=== PATIENT | male | born 1955 | race American Indian/Alaskan Native ===

== ENCOUNTER → 2018-03-27 | Outpatient (CLI) | payer SELFPAY ==
[~2018-03-27] MED LIST: CIPR500 PO; CLIN300 PO; FLUT.05NI; HYDACE5 PO; METO25ER PO; ONDA4 PO; OXYACE5T PO; PROM25 PO; RXPROM25 PO
[2018-03-27 11:01] LABS: BASOPHILS ABSOLUTE AUTO 0.02 K/mm3 (0.00-0.23); BASOPHILS PERCENT AUTO 0 % (0-2); EOSINOPHILS ABSOLUTE AUTO 0.13 K/mm3 (0.00-0.68); EOSINOPHILS PERCENT AUTO 2 % (0-6); Hematocrit 46.8 % (37.0-53.0); Hemoglobin 15.5 g/dL (13.5-17.5); IMMATURE GRAN ABSOLUTE AUTO 0.03 K/mm3 (0.00-0.10); IMMATURE GRAN PERCENT AUTO 0 % (0-1); LYMPHOCYTES ABSOLUTE AUTO 2.18 K/mm3 (0.84-5.20); LYMPHOCYTES PERCENT AUTO 28 % (21-46); MONOCYTES ABSOLUTE AUTO 0.51 K/mm3 (0.16-1.47); MONOCYTES PERCENT AUTO 7 % (4-13); Mean Corpuscular HGB 31.5 pg (26.0-34.0); Mean Corpuscular HGB Conc 33.1 g/dL (31.5-36.5); Mean Corpuscular Volume 95 fL (80-100); Mean Platelet Volume 11.5 fL (9.1-12.4); NEUTROPHILS ABSOLUTE AUTO 4.82 K/mm3 (1.96-9.15); NEUTROPHILS PERCENT AUTO 63 % (41-73); Platelet Count 222 K/mm3 (150-400); RDW Standard Deviation 46.4 fL (35.1-46.3); Red Blood Cell Count 4.92 M/mm3 (4.30-5.90); White Blood Cell Count 7.69 K/mm3 (4.00-11.30)
[2018-03-27 11:32] LABS: Alanine Aminotransfer (ALT/SGP 19 U/L (12-78); Albumin, Blood 3.6 g/dL (3.4-5.0); Albumin/Globulin Ratio 0.9 (0.8-1.8); Alk Phos 110 U/L (50-136); Anion Gap 3 mmol/L (6-16); Aspartate Aminotrans (AST/SGOT 13 U/L (12-37); Bilirubin, Total 0.4 mg/dL (0.1-1.0); Blood Urea Nitrogen 10 mg/dL (8-24); Bun/Creatinine Ratio 11.5 (12.0-20.0); CHOL/HDL RATIO 3.8; CO2, Blood 30 mmol/L (21-32); Calcium, Blood 8.5 mg/dL (8.5-10.1); Chloride, Blood 104 mmol/L (98-108); Cholesterol 199 mg/dL (50-200); Creatinine, Blood 0.87 mg/dL (0.60-1.20); Globulin, Blood 3.8 g/dL (2.2-4.0); Glomerular Filtration Rate >60 (60-); Glucose, Blood 86 mg/dL (70-99); HDL Cholesterol 53 mg/dL (>39); LDL/HDL RATIO 2.5; Low Density Lipoprotein Chol 132 mg/dL (0-110); Potassium, Blood 4.2 mmol/L (3.5-5.5); Sodium, Blood 137 mmol/L (136-145); Total Protein, Blood 7.4 g/dL (6.4-8.2); Triglycerides 71 mg/dL (30-160); Very Low Density Lipoprot Chol 14 mg/dL (6-32)
== END ==
LOC: LAB SHORT 10:51 → LAB 10:51
PROVIDERS: Physician Assistant
DX: R00.2 Palpitations (principal); R53.83 Other fatigue
CPT/HCPCS: 80053; 80061; 84443; 85025

== ENCOUNTER → 2022-10-16 | Outpatient (CLI) | payer SELFPAY ==
[2022-10-16 13:54] LABS: BASOPHILS ABSOLUTE AUTO 0.04 K/mm3 (0.00-0.23); BASOPHILS PERCENT AUTO 1 % (0-2); EOSINOPHILS PERCENT AUTO 1 % (0-6); Hemoglobin 14.9 g/dL (13.5-17.5); IMMATURE GRAN ABSOLUTE AUTO 0.02 K/mm3 (0.00-0.10); IMMATURE GRAN PERCENT AUTO 0 % (0-1); LYMPHOCYTES ABSOLUTE AUTO 1.57 K/mm3 (0.84-5.20); LYMPHOCYTES PERCENT AUTO 20 % (21-46); MONOCYTES ABSOLUTE AUTO 0.55 K/mm3 (0.16-1.47); MONOCYTES PERCENT AUTO 7 % (4-13); Mean Corpuscular HGB 31.9 pg (26.0-34.0); Mean Corpuscular HGB Conc 33.9 g/dL (31.5-36.5); Mean Corpuscular Volume 94 fL (80-100); Mean Platelet Volume 10.8 fL (9.1-12.4); NEUTROPHILS ABSOLUTE AUTO 5.59 K/mm3 (1.96-9.15); NEUTROPHILS PERCENT AUTO 71 % (41-73); Platelet Count 252 K/mm3 (150-400); RDW Coefficient Variation 12.6 % (11.7-14.2); RDW Standard Deviation 43.8 fL (35.1-46.3); Red Blood Cell Count 4.67 M/mm3 (4.30-5.90); White Blood Cell Count 7.87 K/mm3 (4.00-11.30)
[2022-10-16 14:05] LABS: Albumin, Blood 3.5 g/dL (3.4-5.0); Bilirubin, Total 0.2 mg/dL (0.1-1.0); Bun/Creatinine Ratio 14.9 (12.0-20.0); Calcium, Blood 8.7 mg/dL (8.5-10.1); Creatinine, Blood 1.01 mg/dL (0.60-1.20); Globulin, Blood 3.4 g/dL (2.2-4.0); Potassium, Blood 4.5 mmol/L (3.5-5.5); Total Protein, Blood 6.9 g/dL (6.4-8.2)
[2022-10-16 15:01] LABS: PSA, %Free 7.3 %
== END | disposition home or self-care (01) ==
LOC: LAB SHORT 13:47
PROVIDERS: Chiropractor
DX: N40.0 Benign prostatic hyperplasia without lower urinary tract symptoms (principal); N50.819 Testicular pain, unspecified
CPT/HCPCS: 80053; 84153; 84154; 85025

== ENCOUNTER → 2025-02-02 | Outpatient (CLI) | payer MEDICARE, OTHER | LOC: LAB 17:34 → LAB SHORT 17:34 | DX: R31.29 Other microscopic hematuria (principal) | CPT/HCPCS: 87086 ==

== ENCOUNTER 2025-06-05 04:12 | Day surgery (SDC) | payer MEDICARE, OTHER | END 2025-06-05 23:00 | disposition home or self-care (01) | LOC: HBO 04:12 | DX: N30.41 Irradiation cystitis with hematuria (principal); R82.89 Other abnormal findings on cytological and histological examination of urine; C61 Malignant neoplasm of prostate; R30.0 Dysuria; C77.9 Secondary and unspecified malignant neoplasm of lymph node, unspecified | CPT/HCPCS: G0277 ==

== ENCOUNTER 2025-06-06 04:34 | Day surgery (SDC) | payer MEDICARE, OTHER | END 2025-06-06 22:00 | disposition home or self-care (01) | LOC: HBO 04:34 | DX: N30.41 Irradiation cystitis with hematuria (principal); R82.89 Other abnormal findings on cytological and histological examination of urine; C61 Malignant neoplasm of prostate; R30.0 Dysuria; C77.9 Secondary and unspecified malignant neoplasm of lymph node, unspecified | CPT/HCPCS: G0277 ==

== ENCOUNTER 2025-06-07 02:02 | Day surgery (SDC) | payer MEDICARE, OTHER | END 2025-06-07 23:00 | disposition home or self-care (01) | LOC: HBO 02:02 | DX: N30.41 Irradiation cystitis with hematuria (principal); R82.89 Other abnormal findings on cytological and histological examination of urine; C61 Malignant neoplasm of prostate; R30.0 Dysuria; C77.9 Secondary and unspecified malignant neoplasm of lymph node, unspecified | CPT/HCPCS: G0277 ==

== ENCOUNTER 2025-06-08 01:31 | Day surgery (SDC) | payer MEDICARE, OTHER | END 2025-06-08 23:00 | disposition home or self-care (01) | LOC: HBO 01:31 | DX: N30.41 Irradiation cystitis with hematuria (principal); C77.9 Secondary and unspecified malignant neoplasm of lymph node, unspecified; C61 Malignant neoplasm of prostate; R82.89 Other abnormal findings on cytological and histological examination of urine; R30.0 Dysuria | CPT/HCPCS: G0277 ==

== ENCOUNTER 2025-06-09 01:45 | Day surgery (SDC) | payer MEDICARE, OTHER ==
[2025-06-10] MEDS ORDERED: TAMSULOSIN HCL0.4 M1 PO (01:54)
[2025-06-10] MEDS ORDERED: MONDOXYNE NL100 MG PO (02:11)
[2025-06-10] MEDS ORDERED: TRAM50 PO (02:11)
[2025-06-10] MEDS ORDERED: DIPHENHYDRAMINE50 M2 PO (02:12)
[2025-06-10] MEDS ORDERED: SOLIFENACIN SUCC5 MG PO (02:12)
[2025-06-10] MEDS ORDERED: ERLEADA240 MG PO (02:13)
[2025-06-10] MEDS ORDERED: AZO D-MANNOSE500 M1 PO (02:16)
== END 2025-06-09 23:00 | disposition home or self-care (01) ==
LOC: HBO 01:45
DX: N30.41 Irradiation cystitis with hematuria (principal); R82.89 Other abnormal findings on cytological and histological examination of urine; C61 Malignant neoplasm of prostate; R30.0 Dysuria; C77.9 Secondary and unspecified malignant neoplasm of lymph node, unspecified
CPT/HCPCS: G0277

== ENCOUNTER 2025-06-09 18:46 | Inpatient (IN) | payer MEDICARE, OTHER ==
[~2025-06-09] VITALS: Ht 175.3 cm; Wt 70.1 kg
[2025-06-09] MEDS ORDERED: FentaNYL Citrate 50 MCG/ML 2 ML Injection IV ONE (19:00)
[2025-06-09] MEDS ORDERED: DiphenhydrAMINE HCl 50 MG/ML 1ML Vial IV ONE (19:00)
[2025-06-09 19:08] LABS: BASOPHILS ABSOLUTE AUTO 0.02 K/mm3 (0.00-0.23); BASOPHILS PERCENT AUTO 0 % (0-2); EOSINOPHILS ABSOLUTE AUTO 0.11 K/mm3 (0.00-0.68); EOSINOPHILS PERCENT AUTO 2 % (0-6); Hematocrit 33.2 % (37.0-53.0); Hemoglobin 11.1 g/dL (13.5-17.5); IMMATURE GRAN ABSOLUTE AUTO 0.02 K/mm3 (0.00-0.10); IMMATURE GRAN PERCENT AUTO 0 % (0-1); LYMPHOCYTES ABSOLUTE AUTO 0.92 K/mm3 (0.84-5.20); LYMPHOCYTES PERCENT AUTO 14 % (21-46); MONOCYTES ABSOLUTE AUTO 0.52 K/mm3 (0.16-1.47); MONOCYTES PERCENT AUTO 8 % (4-13); Mean Corpuscular HGB Conc 33.4 g/dL (31.5-36.5); Mean Corpuscular Volume 97 fL (80-100); NEUTROPHILS ABSOLUTE AUTO 5.02 K/mm3 (1.96-9.15); NEUTROPHILS PERCENT AUTO 76 % (41-73); NRBC ABSOLUTE 0.00 K/mm3 (0.00-0.02); NRBC Auto 0.0 /100 WBC (0.0-0.2); Platelet Count 236 K/mm3 (150-400); RDW Coefficient Variation 12.3 % (11.7-14.2); RDW Standard Deviation 43.8 fL (35.1-46.3)
[2025-06-09 19:24] LABS: Prothrombin Time Results 10.3 Sec (9.7-11.5)
[2025-06-09] MEDS ORDERED: HYDROmorphone HCl/Pf 1MG SYR ONE (19:33)
[2025-06-09 19:35] LABS: Alanine Aminotransfer (ALT/SGP 69.0 U/L (12-78); Albumin, Blood 3.2 g/dL (3.4-5.0); Albumin/Globulin Ratio 1.0 (0.8-1.8); Anion Gap 6.0 mmol/L (3-11); Aspartate Aminotrans (AST/SGOT 84.0 U/L (12-37); Bilirubin, Total 0.3 mg/dL (0.1-1.0); Blood Urea Nitrogen 20.0 mg/dL (8-24); CO2, Blood 29.0 mmol/L (21-32); Calcium, Blood 8.9 mg/dL (8.5-10.1); Chloride, Blood 104.0 mmol/L (98-108); Creatinine, Blood 1.05 mg/dL (0.60-1.20); Globulin, Blood 3.3 g/dL (2.2-4.0); Glucose, Blood 129.0 mg/dL (70-99); Potassium, Blood 4.2 mmol/L (3.5-5.5); Sodium, Blood 135.0 mmol/L (136-145); Total Protein, Blood 6.5 g/dL (6.4-8.2)
[2025-06-09] MEDS ORDERED: HYDROmorphone HCl/Pf 1MG SYR IV ONE ×2 (19:35→21:50)
[2025-06-09 19:47] LABS: Source, Urine Clean Catch
[2025-06-09 19:52] LABS: Bilirubin, Urine Neg (Neg); Color, Urine Yellow (P-Yellow); Glucose Qualitative, Urine Neg (Neg); Ketones, Urine Neg (Neg); Leukocyte Esterase, Urine Neg (Neg); Protein, Urine 2+ (Neg); Specific Gravity, Urine 1.010 (1.003-1.022); Urobilinogen, Urine 1+ (Normal)
[2025-06-09] MEDS ORDERED: Diazepam 5 MG / ML 2ML SYR IV ONE (20:45)
[2025-06-09] MEDS ORDERED: CeFAZolin Sodium 2,000 MG in NS 100 ML IV ONE (20:55)
[2025-06-09] MEDS ORDERED: Ondansetron HCl 2 MG / ML 2ML Vial IV PRN (23:05)
[2025-06-09] MEDS ORDERED: HYDROmorphone HCl/Pf 1MG SYR IV PRN (23:10)
[2025-06-10] VITALS (13 sets, daily range): BP systolic 136–166; BP diastolic 70–80
[2025-06-10] MEDS ORDERED: Cefepime HCl 2,000 MG in NS 100 ML IV SCH
[2025-06-10] MEDS ORDERED: Cefepime HCl 1,000 MG in NS 100 ML IV SCH (00:13)
[2025-06-10] MEDS ORDERED: Ketorolac Tromethamine 15mg Vial IV PRN (00:15)
[2025-06-10] MEDS ORDERED: TAMSULOSIN HCL0.4 M1 PO (01:54)
[2025-06-10] MEDS ORDERED: TRAM50 PO (02:11)
[2025-06-10] MEDS ORDERED: MONDOXYNE NL100 MG PO (02:11)
[2025-06-10] MEDS ORDERED: SOLIFENACIN SUCC5 MG PO (02:12)
[2025-06-10] MEDS ORDERED: DIPHENHYDRAMINE50 M2 PO (02:12)
[2025-06-10] MEDS ORDERED: ERLEADA240 MG PO (02:13)
[2025-06-10] MEDS ORDERED: AZO D-MANNOSE500 M1 PO (02:16)
--- NOTE | 2025-06-10 04:41 | NUR ---
0125 PT ARRIVES VIA GURNEY FROM ED. PT TRANSFERRED TO BED WITH 3X ASSIST AND SLIDER SHEET. PT ORIENTED TO ROOM; SCD PLACED. CALL LIGHT WITHIN REACH.
[2025-06-10 05:49] LABS: Hematocrit 31.6 % (37.0-53.0); Hemoglobin 10.3 g/dL (13.5-17.5); Mean Corpuscular HGB Conc 32.6 g/dL (31.5-36.5); Mean Corpuscular Volume 98 fL (80-100); NRBC ABSOLUTE 0.00 K/mm3 (0.00-0.02); NRBC Auto 0.0 /100 WBC (0.0-0.2); Platelet Count 198 K/mm3 (150-400); RDW Coefficient Variation 12.3 % (11.7-14.2); RDW Standard Deviation 44.6 fL (35.1-46.3)
[2025-06-10 06:10] LABS: Anion Gap 10.0 mmol/L (3-11); Blood Urea Nitrogen 26.0 mg/dL (8-24); CO2, Blood 24.0 mmol/L (21-32); Calcium, Blood 8.4 mg/dL (8.5-10.1); Chloride, Blood 106.0 mmol/L (98-108); Creatinine, Blood 0.97 mg/dL (0.60-1.20); Glucose, Blood 159.0 mg/dL (70-99); Magnesium, Blood 2.2 mg/dL (1.6-2.4); Potassium, Blood 4.6 mmol/L (3.5-5.5); Sodium, Blood 135.0 mmol/L (136-145)
[2025-06-10] MEDS ORDERED: Vancomycin HCl 1000 MG ADDvantage ONE ×2 (17:46→18:01)
[2025-06-10] MEDS ORDERED: Bupivacaine 0.5% W/EPI 1:200000 SDV 30 ML Vial ONE (17:46)
[2025-06-10] MEDS ORDERED: Midazolam HCl 1MG / ML 2ML Vial ONE (17:49)
[2025-06-10] MEDS ORDERED: FentaNYL Citrate 50 MCG/ML 2 ML Injection ONE (17:50)
[2025-06-10] MEDS ORDERED: HYDROmorphone HCl/Pf 1MG SYR ONE ×2 (18:19→18:50)
[2025-06-10] MEDS ORDERED: CeFAZolin Sodium 2,000 MG in NS 100 ML IV SCH (18:35)
--- NOTE | 2025-06-10 19:26 | NUR ---
06/10/251925 Steffi Pu[address] DR. GAVE ANCEF [address] MCCAULEY VERBAL ORDER AT 1904 TODAY
[2025-06-10] MEDS ORDERED: Dexamethasone Sod Phos 10 MG/ML 1ML VIAL ONE (19:53)
[2025-06-10] MEDS ORDERED: Ondansetron HCl 2 MG / ML 2ML Vial ONE (19:53)
[2025-06-10] MEDS ORDERED: Phenylephrine HCl 100 MCG/ML-NS 10MLSYR (1MG/10ML) ONE (20:04)
[2025-06-10] MEDS ORDERED: HYDROmorphone HCl/Pf 1MG SYR IV PRN (20:30)
[2025-06-10] MEDS ORDERED: FentaNYL Citrate 50 MCG/ML 2 ML Injection IV PRN ×3 (20:30→20:35)
[2025-06-10] MEDS ORDERED: Prochlorperazine Edisylate 10 mg Vial IV PRN (20:35)
[2025-06-10] MEDS ORDERED: Ondansetron HCl 2 MG / ML 2ML Vial IV PRN (20:35)
--- NOTE | 2025-06-10 20:55 | NUR ---
PT ARRIVES VIA GURNEY FROM PACU WITH STAFF. TRANSFERRED TO BED FROM [facility].
[2025-06-11] VITALS: BP 129/75
[2025-06-11 03:55] VITALS: BP 154/76
--- NOTE | 2025-06-11 05:03 | NUR ---
SHIFT SUMMARY NO ACUTE EVENTS OVERNIGHT. PT POD#1 I&D, ORIF, ULNAR PLATE TO WILL. PT MEDICATED FOR PAIN PER EMAR. PT TOLERATING REGULAR DIET. PT WILL WITH VOLAR SPLINT IN PLACE, CDI; ORTHO BOOT TO RLE. PT DX WITH PROSTATE CA AND HAS TROUBLE URINATING DUE TO PAIN AT BASELINE. PT HAS COMPLETED SESSION OF HYPERBARIC TREATMENTS.
[2025-06-11 05:32] LABS: Hematocrit 27.5 % (37.0-53.0); Hemoglobin 9.2 g/dL (13.5-17.5); Mean Corpuscular HGB Conc 33.5 g/dL (31.5-36.5); Mean Corpuscular Volume 98 fL (80-100); NRBC ABSOLUTE 0.00 K/mm3 (0.00-0.02); NRBC Auto 0.0 /100 WBC (0.0-0.2); Platelet Count 187 K/mm3 (150-400); RDW Coefficient Variation 12.3 % (11.7-14.2); RDW Standard Deviation 44.7 fL (35.1-46.3)
[2025-06-11 06:00] LABS: Anion Gap 8.0 mmol/L (3-11); Blood Urea Nitrogen 24.0 mg/dL (8-24); CO2, Blood 25.0 mmol/L (21-32); Calcium, Blood 8.0 mg/dL (8.5-10.1); Chloride, Blood 107.0 mmol/L (98-108); Creatinine, Blood 0.82 mg/dL (0.60-1.20); Glucose, Blood 158.0 mg/dL (70-99); Potassium, Blood 4.6 mmol/L (3.5-5.5); Sodium, Blood 135.0 mmol/L (136-145)
[2025-06-11 07:30] VITALS: BP 146/81
[2025-06-11] MEDS ORDERED: Enoxaparin 40 MG/0.4 ML SYR SC SCH (09:00)
[2025-06-11] MEDS ORDERED: Flonase 0.05% N16 GM (10:56)
[2025-06-11] MEDS ORDERED: Fluticasone 0.05% Nasal Spray SCH ×2 (12:05→21:00)
[2025-06-11 16:07] VITALS: BP 141/75
--- NOTE | 2025-06-11 18:04 | NUR ---
SHIFT SUMMARY POD 1 ORIF PT AMBULATES WELL USING J CARLOS WALKER. PAIN CONTROLLED PER EMAR. PT UP IN CHAIR FOR MAJORITY OF SHIFT. DRESSINGS REMAIN CDI. PT VOIDING USING URINAL, REPORTS NO BOWEL MOVEMENT FOR A FEW DAYS. RECIEVING STOOL SOFTNERS SCHEDULED.
[2025-06-11 18:29] VITALS: BP 140/77
[2025-06-11] MEDS ORDERED: Polyethylene Glycol 3350 17 gm PO SCH (21:00)
--- NOTE | 2025-06-12 03:30 | NUR ---
RN TO ROOM TO ROUND; PT SLEEPING WITH EQUAL AND UNLABORED BREATHS. CALL LIGHT WITHIN REACH.
--- NOTE | 2025-06-12 04:22 | NUR ---
NOC SUMMARY- PT PAIN MANAGED WELL. PT VOIDING AND TRYING TO HAVE A BM. PT DRESSINGS ARE C/D/I. PT AMBULATORY WITH FWW AND GB. PT AWARE OF WEIGHT BEARING RESTRICTIONS. CALL LIGHT IN REACH.
[2025-06-12 06:28] VITALS: BP 144/74
[2025-06-12 07:07] VITALS: BP 135/75
[2025-06-12] MEDS ORDERED: Magnesium Hydroxide Conc 10 ML UDC PO ONE (09:35)
[2025-06-12] MEDS ORDERED: OXYC5 PO (10:14)
[2025-06-12 15:11] VITALS: BP 154/82
--- NOTE | 2025-06-12 16:44 | NUR ---
DISCHARGED REVIEWED DC INSTRUCTIONS W/PT; VERBALIZED UNDERSTANDING. DC'D IV, CATHETER INTACT. PROVIDED DRESSING SUPPLY CHANGES. REC'D PLATFORM WALKER PRIOR TO DC. PT LEFT UNIT IN WC W/POSSESSIONS AND DC PAPERWORK IN HAND, ACCOMPANIED BY ANNMARIE.
== END 2025-06-12 16:45 | disposition home health service (06) | DRG 511 ==
LOC: ER 18:46 → SURS 18:47
PROVIDERS: Orthopaedic Surgery Sports Medicine; Student in an Organized Health Care Education/Training Program; ADMIT Surgery
PROC: 0XQ80ZZ Repair Right Upper Arm, Open Approach (ICD-10-PCS; 2025-06-09)
PROC: 3E03329 Introduction of Other Anti-infective into Peripheral Vein, Percutaneous Approach (ICD-10-PCS; 2025-06-10)
PROC: 0PSK04Z Reposition Right Ulna with Internal Fixation Device, Open Approach (ICD-10-PCS; principal; 2025-06-10 11:00)
DX: S52.691B Other fracture of lower end of right ulna, initial encounter for open fracture type I or II (principal); C77.9 Secondary and unspecified malignant neoplasm of lymph node, unspecified; N30.41 Irradiation cystitis with hematuria; S22.008A Other fracture of unspecified thoracic vertebra, initial encounter for closed fracture; S32.008A Other fracture of unspecified lumbar vertebra, initial encounter for closed fracture; S82.844A Nondisplaced bimalleolar fracture of right lower leg, initial encounter for closed fracture; I10 Essential (primary) hypertension; R91.1 Solitary pulmonary nodule; Z91.041 Radiographic dye allergy status; Z79.899 Other long term (current) drug therapy; Z87.438 Personal history of other diseases of male genital organs; Z79.2 Long term (current) use of antibiotics; V50.0XXA Driver of pick-up truck or van injured in collision with pedestrian or animal in nontraffic accident, initial encounter; R82.89 Other abnormal findings on cytological and histological examination of urine; C61 Malignant neoplasm of prostate; R30.0 Dysuria
CPT/HCPCS: 12004; 29125; 29515; 36415; 70450; 71260; 72125; 73070; 73100; 73562-RT; 73610; 74177; 80048; 80053; 81001; 83735; 85025; 85027; 85610; 85730; 86850; 86900; 86901; 87086; 90471; 90715; 93005; 93010; 94760; 96361-59; 96365-59; 96375; 96375-59; 96376; 96376-59; 97110; 97116; 97161; 97166; 97530; 97535; 99285-25; A9270; C1713; G0277; G0378; J0690; J0692; J1100; J1171; J1200; J1650; J1885; J2250; J2371; J2405; J2704; J2919; J3010; J3360; J3373; J7120; Q9967

== ENCOUNTER 2025-10-10 00:33 | Day surgery (SDC) | payer MEDICARE, OTHER ==
[~2025-10-10 00:33] MED LIST changes: +AZO D-MANNOSE500 M1 PO; +DIPHENHYDRAMINE50 M2 PO; +ERLEADA240 MG PO; +Flonase 0.05% N16 GM; +MONDOXYNE NL100 MG PO; +OXYC5 PO; +SOLIFENACIN SUCC5 MG PO; +TAMSULOSIN HCL0.4 M1 PO; +TRAM50 PO
== END 2025-10-10 22:43 | disposition home or self-care (01) ==
LOC: WOUND 00:33
DX: N30.41 Irradiation cystitis with hematuria (principal); C61 Malignant neoplasm of prostate; C77.9 Secondary and unspecified malignant neoplasm of lymph node, unspecified; R82.89 Other abnormal findings on cytological and histological examination of urine; R30.0 Dysuria; Z88.8 Allergy status to other drugs, medicaments and biological substances
CPT/HCPCS: G0463

== ENCOUNTER 2025-10-30 07:00 | Day surgery (SDC) | payer MEDICARE, OTHER | END 2025-10-30 23:15 | disposition home or self-care (01) | LOC: HBO 07:00 | DX: L59.8 Other specified disorders of the skin and subcutaneous tissue related to radiation (principal); C61 Malignant neoplasm of prostate; N30.40 Irradiation cystitis without hematuria | CPT/HCPCS: G0277 ==

== ENCOUNTER 2025-10-31 02:24 | Day surgery (SDC) | payer MEDICARE, OTHER | END 2025-10-31 23:23 | disposition home or self-care (01) | LOC: HBO 02:24 | DX: L59.8 Other specified disorders of the skin and subcutaneous tissue related to radiation (principal); N30.41 Irradiation cystitis with hematuria; C61 Malignant neoplasm of prostate; R82.89 Other abnormal findings on cytological and histological examination of urine; R30.0 Dysuria; C77.9 Secondary and unspecified malignant neoplasm of lymph node, unspecified; Y84.2 Radiological procedure and radiotherapy as the cause of abnormal reaction of the patient, or of later complication, without mention of misadventure at the time of the procedure; Z79.51 Long term (current) use of inhaled steroids; Z79.899 Other long term (current) drug therapy; Z88.8 Allergy status to other drugs, medicaments and biological substances | CPT/HCPCS: G0277 ==

== ENCOUNTER 2025-11-01 00:12 | Day surgery (SDC) | payer MEDICARE, OTHER | END 2025-11-01 23:21 | disposition home or self-care (01) | LOC: HBO 00:12 | DX: L59.8 Other specified disorders of the skin and subcutaneous tissue related to radiation (principal); N30.41 Irradiation cystitis with hematuria; C61 Malignant neoplasm of prostate; R82.89 Other abnormal findings on cytological and histological examination of urine; R30.0 Dysuria; C77.9 Secondary and unspecified malignant neoplasm of lymph node, unspecified; Y84.2 Radiological procedure and radiotherapy as the cause of abnormal reaction of the patient, or of later complication, without mention of misadventure at the time of the procedure; Z79.51 Long term (current) use of inhaled steroids; Z79.899 Other long term (current) drug therapy; Z91.041 Radiographic dye allergy status | CPT/HCPCS: G0277 ==

== ENCOUNTER 2025-11-02 01:59 | Day surgery (SDC) | payer MEDICARE, OTHER | END 2025-11-02 23:00 | disposition home or self-care (01) | LOC: HBO 01:59 | DX: N30.41 Irradiation cystitis with hematuria (principal); C61 Malignant neoplasm of prostate; C77.9 Secondary and unspecified malignant neoplasm of lymph node, unspecified | CPT/HCPCS: G0277 ==

== ENCOUNTER 2025-11-03 02:33 | Day surgery (SDC) | payer MEDICARE, OTHER | END 2025-11-03 23:00 | disposition home or self-care (01) | LOC: HBO 02:33 | DX: L59.8 Other specified disorders of the skin and subcutaneous tissue related to radiation (principal); N30.41 Irradiation cystitis with hematuria; C61 Malignant neoplasm of prostate; C77.4 Secondary and unspecified malignant neoplasm of inguinal and lower limb lymph nodes; R82.89 Other abnormal findings on cytological and histological examination of urine | CPT/HCPCS: G0277 ==

== ENCOUNTER 2025-11-06 02:30 | Day surgery (SDC) | payer MEDICARE, OTHER | END 2025-11-06 23:56 | disposition home or self-care (01) | LOC: HBO 02:30 | DX: L59.8 Other specified disorders of the skin and subcutaneous tissue related to radiation (principal); Y84.2 Radiological procedure and radiotherapy as the cause of abnormal reaction of the patient, or of later complication, without mention of misadventure at the time of the procedure; C61 Malignant neoplasm of prostate | CPT/HCPCS: G0277 ==

== ENCOUNTER 2025-11-07 02:21 | Day surgery (SDC) | payer MEDICARE, OTHER | END 2025-11-07 23:16 | disposition home or self-care (01) | LOC: HBO 02:21 | DX: N30.41 Irradiation cystitis with hematuria (principal); L59.8 Other specified disorders of the skin and subcutaneous tissue related to radiation; C61 Malignant neoplasm of prostate; C77.4 Secondary and unspecified malignant neoplasm of inguinal and lower limb lymph nodes | CPT/HCPCS: G0277 ==

== ENCOUNTER 2025-11-08 00:12 | Day surgery (SDC) | payer MEDICARE, OTHER | END 2025-11-08 23:00 | disposition home or self-care (01) | LOC: HBO 00:12 | DX: L59.8 Other specified disorders of the skin and subcutaneous tissue related to radiation (principal); C61 Malignant neoplasm of prostate; C77.9 Secondary and unspecified malignant neoplasm of lymph node, unspecified | CPT/HCPCS: G0277 ==

== ENCOUNTER 2025-11-09 04:03 | Day surgery (SDC) | payer MEDICARE, OTHER | END 2025-11-09 23:00 | disposition home or self-care (01) | LOC: HBO | DX: L59.8 Other specified disorders of the skin and subcutaneous tissue related to radiation (principal); C61 Malignant neoplasm of prostate; C77.9 Secondary and unspecified malignant neoplasm of lymph node, unspecified; Y84.2 Radiological procedure and radiotherapy as the cause of abnormal reaction of the patient, or of later complication, without mention of misadventure at the time of the procedure | CPT/HCPCS: G0277 ==

== ENCOUNTER 2025-11-10 06:38 | Day surgery (SDC) | payer MEDICARE, OTHER | END 2025-11-10 23:00 | disposition home or self-care (01) | LOC: HBO 06:38 | DX: N30.41 Irradiation cystitis with hematuria (principal); R82.89 Other abnormal findings on cytological and histological examination of urine; C61 Malignant neoplasm of prostate; C77.4 Secondary and unspecified malignant neoplasm of inguinal and lower limb lymph nodes | CPT/HCPCS: G0277 ==

== ENCOUNTER 2025-11-13 00:08 | Day surgery (SDC) | payer MEDICARE, OTHER | END 2025-11-13 23:00 | disposition home or self-care (01) | LOC: HBO 00:08 | DX: L59.8 Other specified disorders of the skin and subcutaneous tissue related to radiation (principal); N30.41 Irradiation cystitis with hematuria; C61 Malignant neoplasm of prostate; C77.4 Secondary and unspecified malignant neoplasm of inguinal and lower limb lymph nodes | CPT/HCPCS: G0277 ==

== ENCOUNTER 2025-11-14 00:21 | Day surgery (SDC) | payer MEDICARE, OTHER | END 2025-11-14 23:00 | disposition home or self-care (01) | LOC: HBO 00:21 → WOUND 08:16 → HBO 08:19 | DX: L59.8 Other specified disorders of the skin and subcutaneous tissue related to radiation (principal); C61 Malignant neoplasm of prostate; C77.9 Secondary and unspecified malignant neoplasm of lymph node, unspecified | CPT/HCPCS: G0277 ==

== ENCOUNTER 2025-11-15 00:54 | Day surgery (SDC) | payer MEDICARE, OTHER | END 2025-11-15 23:49 | disposition home or self-care (01) | LOC: HBO 00:54 | DX: L59.8 Other specified disorders of the skin and subcutaneous tissue related to radiation (principal); N30.41 Irradiation cystitis with hematuria; C61 Malignant neoplasm of prostate; C77.9 Secondary and unspecified malignant neoplasm of lymph node, unspecified; Y84.2 Radiological procedure and radiotherapy as the cause of abnormal reaction of the patient, or of later complication, without mention of misadventure at the time of the procedure | CPT/HCPCS: G0277 ==

== ENCOUNTER → 2025-11-27 | Day surgery (SDC) | payer MEDICARE, OTHER | LOC: HBO 12:01 | DX: L59.8 Other specified disorders of the skin and subcutaneous tissue related to radiation (principal); C61 Malignant neoplasm of prostate; C77.9 Secondary and unspecified malignant neoplasm of lymph node, unspecified | CPT/HCPCS: G0277 ==

== ENCOUNTER 2025-11-28 08:00 | Day surgery (SDC) | payer MEDICARE, OTHER | END 2025-11-28 23:00 | disposition home or self-care (01) | LOC: HBO 08:00 → WOUND 11:09 → HBO 11:18 | DX: L59.8 Other specified disorders of the skin and subcutaneous tissue related to radiation (principal); N30.41 Irradiation cystitis with hematuria; C61 Malignant neoplasm of prostate; C77.9 Secondary and unspecified malignant neoplasm of lymph node, unspecified; Y84.2 Radiological procedure and radiotherapy as the cause of abnormal reaction of the patient, or of later complication, without mention of misadventure at the time of the procedure | CPT/HCPCS: G0277 ==

== ENCOUNTER 2025-11-28 10:15 | Day surgery (SDC) | payer MEDICARE, OTHER | END 2025-11-28 23:00 | disposition home or self-care (01) | LOC: WOUND 10:15 | DX: N30.41 Irradiation cystitis with hematuria (principal); C61 Malignant neoplasm of prostate; C77.4 Secondary and unspecified malignant neoplasm of inguinal and lower limb lymph nodes; R82.89 Other abnormal findings on cytological and histological examination of urine | CPT/HCPCS: G0463 ==

== ENCOUNTER 2025-11-29 07:36 | Day surgery (SDC) | payer MEDICARE, OTHER | END 2025-11-29 23:00 | disposition home or self-care (01) | LOC: HBO 07:36 | DX: L59.8 Other specified disorders of the skin and subcutaneous tissue related to radiation (principal); Y84.2 Radiological procedure and radiotherapy as the cause of abnormal reaction of the patient, or of later complication, without mention of misadventure at the time of the procedure; C61 Malignant neoplasm of prostate | CPT/HCPCS: G0277 ==